=== PATIENT | female | born 1990 | race Caucasian/White ===

== ENCOUNTER 2020-01-05 20:23 | Emergency (ER) | payer SELFPAY ==
--- NOTE | ~2020-01-05 | XR_ITS ---
EXAMINATION: XR ankle RT min 3V INDICATION: Right ankle pain, initial encounter TECHNIQUE: Four views of the right ankle are obtained. COMPARISON: None available FINDINGS: There is an acute, traumatic, oblique fracture of the medial malleolus which extends to the level of the tibial plafond and. There are as much as 7 mm of displacement of the fracture fragment. Ankle soft tissue swelling is present. No additional acute osseous abnormality is identified. IMPRESSION: 1. Oblique fracture of the medial malleolus with surrounding soft tissue swelling. Reviewed, dictated and finalized at location A. IMPRESSION: 1. Oblique fracture of the medial malleolus with surrounding soft tissue jaylon lovell.
[2020-01-05 20:21] VITALS: BP 145/89; PULSE 103; RESP 15; TEMP 36.8; O2SAT 99
--- NOTE | 2020-01-05 20:34 | PC.NURSE ---
C Collar removed by EDP Dr Heredia at bedside.
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
[2020-01-05 23:00] VITALS: BP 128/84; PULSE 98; RESP 16; O2SAT 96
[2020-01-05] MEDS: KETOROLAC (*BKC) 60 MG/2 ML VIAL IM (23:58)
[2020-01-06 01:33] VITALS: BP 128/84; PULSE 87; RESP 16; TEMP 36.8; O2SAT 99
== END 2020-01-06 02:20 | disposition home or self-care (01) ==
PROVIDERS: Emergency Provider Emergency Medicine
DX: S82.51XA Displaced fracture of medial malleolus of right tibia, initial encounter for closed fracture (principal); V47.6XXA Car passenger injured in collision with fixed or stationary object in traffic accident, initial encounter
CPT/HCPCS: 29515; 73610; 96372; 99284; J1885